=== PATIENT | male | born 1975 | race Caucasian/White ===

== ENCOUNTER 2024-10-30 09:09 | Inpatient (IN) | payer OTHER ==
[~2024-10-30] VITALS: Ht 177.8 cm; Wt 83.9 kg
[2024-10-30] VITALS (49 sets, daily range): BP systolic 129–169; BP diastolic 95–128; PULSE 75–111; RESP 7–34; TEMP 36.2–36.4; O2SAT 91–99
[2024-10-30] MEDS: HEPARIN 5000 UNITS/ML VIAL IV ONE (09:18)
[2024-10-30] MEDS: METOPROLOL TARTRATE 5MG/5ML VIAL IV ONE (09:18)
[2024-10-30] MEDS ORDERED: HEPARIN 1000 UNITS/ML 10ML ONE (09:21)
[2024-10-30] MEDS ORDERED: IODIXANOL 320 MG/ML 150ML BOTTLE IV ONE (09:21)
[2024-10-30] MEDS ORDERED: LIDOCAINE HCL 1% 20ML VIAL ONE (09:21)
[2024-10-30 09:23] LABS: BASOPHILS % 0.6 % (0.0-2.0); EOSINOPHILS % 3.4 % (0.0-5.0); HEMATOCRIT. 44.6 % (42.0-52.0); HEMOGLOBIN. 14.8 g/dL (14.0-18.0); LYMPHOCYTES % 41.6 % (20.0-50.0); MEAN CORPUSCULAR HEMOGLOBIN 30.5 pg (28.0-32.0); MEAN CORPUSCULAR HGB CONC 33.3 g/dL (31.0-37.0); MEAN CORPUSCULAR VOLUME 91.6 fL (80.0-94.0); MEAN PLATELET VOLUME 8.7 fl (7.4-10.4); MONOCYTES % 6.9 % (2.0-8.0); NEUTROPHILS % 47.5 % (40.0-76.0); PLATELET 258 x1000/uL (130-400); RED BLOOD CELL COUNT 4.87 mill/uL (4.7-6.1); RED CELL DISTRIBUTION WIDTH 13.1 % (11.6-14.6); WHITE BLOOD COUNT 11.7 x1000/uL (4.5-11.0)
[2024-10-30] MEDS ORDERED: MIDAZOLAM HCL 2 MG/2 ML VIAL ONE (09:23)
[2024-10-30] MEDS ORDERED: FENTANYL CITRATE/PF 50MCG/ML 2ML VIAL ONE (09:23)
[2024-10-30 09:32] LABS: CARBON DIOXIDE 26 mEq/L (21-32); CHLORIDE 105 mEq/L (98-107); POTASSIUM 3.5 mEq/L (3.5-5.1); SODIUM 142 mEq/L (136-145)
[2024-10-30 09:33] LABS: CALCIUM 9.4 mg/dL (8.7-10.4)
[2024-10-30 09:37] LABS: CREATININE 1.3 mg/dL (0.6-1.3); GLUCOSE 165 mg/dL (70-105)
[2024-10-30 09:38] LABS: UREA NITROGEN BLOOD 11 mg/dL (9-23)
[2024-10-30 09:39] LABS: ALANINE AMINOTRANSFERASE 111 IU/L (10-49); ALBUMIN 4.8 g/dL (3.2-4.8); ASPARTATE AMINOTRANSFERASE 42 IU/L (<34)
[2024-10-30 09:40] LABS: BILIRUBIN DIRECT 0.1 mg/dL (<=3.0); BILIRUBIN TOTAL 0.6 mg/dL (0.1-1.0); PROTEIN TOTAL 7.8 g/dL (6.0-8.3)
[2024-10-30 09:43] LABS: PROTHROMBIN TIME 10.6 sec (9.6-11.0)
[2024-10-30 09:54] LABS: TROPONIN I HIGH SENSITIVITY 83 ng/L (3.0-53)
[2024-10-30] MEDS ORDERED: IODIXANOL 320MG/ML 100 ML BOTTLE IV ONE (10:03)
[2024-10-30] MEDS ORDERED: CLOPIDOGREL 75MG TABLET ONE (10:13)
[2024-10-30] MEDS ORDERED: ATROPINE SULFATE 1MG/10ML SYR IV PRN (10:30)
[2024-10-30] MEDS ORDERED: ACETAMINOPHEN 325MG TABLET PO PRN (11:30)
[2024-10-30] MEDS ORDERED: MORPHINE SULFATE 2 MG/ML INJ (NOT FOR IM USE) IV PRN (11:30)
[2024-10-30] MEDS ORDERED: MAGNESIUM/ALUMINUM HYDROXIDE/SIMETHICONE 30ML UDC PO PRN (11:30)
[2024-10-30] MEDS ORDERED: GUAIFENESIN 200MG/10ML SUGAR FREE UDC PO PRN (11:30)
[2024-10-30] MEDS ORDERED: DOCUSATE SODIUM 100MG CAPSULE PO PRN (11:30)
[2024-10-30] MEDS ORDERED: IPRATROPIUM/ALBUTEROL 0.5-3(2.5)MG/3ML NEB HHN PRN (11:30)
[2024-10-30] MEDS: ONDANSETRON HCL 4MG/2ML INJ IV PRN (11:39)
[2024-10-30] MEDS: CLONIDINE 0.1MG TABLET PO PRN (11:40)
[2024-10-30] MEDS ORDERED: NALOXONE HCL 0.4MG/ML VIAL IV PRN (11:45)
[2024-10-30 13:22] LABS: TROPONIN I HIGH SENSITIVITY 161276 ng/L (3.0-53)
[2024-10-30] MEDS: ACETAMINOPHEN 325MG TABLET PO PRN (14:43)
[2024-10-30] MEDS: HYDRALAZINE 20MG/ML VIAL IV NR (16:39)
[2024-10-30 17:28] LABS: TROPONIN I HIGH SENSITIVITY 138003 ng/L (3.0-53)
[2024-10-30] MEDS: METOPROLOL TARTRATE 50MG TABLET PO SCH (20:40)
[2024-10-30] MEDS: ATORVASTATIN CALCIUM 40MG TABLET PO SCH (20:40)
[2024-10-30] MEDS ORDERED: METOPROLOL TARTRATE 25MG TABLET PO SCH (21:00)
[2024-10-30 22:11] LABS: TROPONIN I HIGH SENSITIVITY 122058 ng/L (3.0-53)
[2024-10-31] VITALS (68 sets, daily range): BP systolic 129–162; BP diastolic 88–125; PULSE 77–123; RESP 8–35; TEMP 36.4–37; O2SAT 89–98
[2024-10-31] MEDS ORDERED: OMEG-221 PO (00:23)
[2024-10-31] MEDS ORDERED: SERT-112 PO (00:23)
[2024-10-31] MEDS ORDERED: DOXY100C5 PO (00:23)
[2024-10-31] MEDS ORDERED: ALPR-339 (00:23)
[2024-10-31] MEDS ORDERED: ERGO1250 PO (00:23)
[2024-10-31 01:04] LABS: CREATINE KINASE MB FRACTION 179.3 ng/mL (0.5-3.6)
[2024-10-31] MEDS: ACETAMINOPHEN 325MG TABLET PO PRN (01:06)
[2024-10-31 01:13] LABS: CREATINE KINASE 2867 IU/L (46-171)
[2024-10-31 01:35] LABS: TROPONIN I HIGH SENSITIVITY 98066 ng/L (3.0-53)
[2024-10-31 07:43] LABS: BASOPHILS % 0.1 % (0.0-2.0); EOSINOPHILS % 0.2 % (0.0-5.0); HEMATOCRIT. 44.8 % (42.0-52.0); HEMOGLOBIN. 15.4 g/dL (14.0-18.0); LYMPHOCYTES % 10.2 % (20.0-50.0); MEAN CORPUSCULAR HEMOGLOBIN 30.9 pg (28.0-32.0); MEAN CORPUSCULAR HGB CONC 34.2 g/dL (31.0-37.0); MEAN CORPUSCULAR VOLUME 90.1 fL (80.0-94.0); MEAN PLATELET VOLUME 8.8 fl (7.4-10.4); MONOCYTES % 8.9 % (2.0-8.0); NEUTROPHILS % 80.6 % (40.0-76.0); PLATELET 259 x1000/uL (130-400); RED BLOOD CELL COUNT 4.98 mill/uL (4.7-6.1); RED CELL DISTRIBUTION WIDTH 13.6 % (11.6-14.6); WHITE BLOOD COUNT 18.5 x1000/uL (4.5-11.0)
[2024-10-31 07:50] LABS: CALCIUM 9.5 mg/dL (8.7-10.4); CHLORIDE 102 mEq/L (98-107); POTASSIUM 3.4 mEq/L (3.5-5.1); SODIUM 137 mEq/L (136-145)
[2024-10-31 07:51] LABS: CARBON DIOXIDE 22 mEq/L (21-32)
[2024-10-31 07:56] LABS: CREATININE 0.9 mg/dL (0.6-1.3); GLUCOSE 124 mg/dL (70-105); T4 FREE 1.07 ng/dL (0.89-1.76); THYROID STIMULATING HORMONE 1.32 uIU/mL (0.55-4.78); TRIGLYCERIDE 167 mg/dL (0-150); UREA NITROGEN BLOOD 11 mg/dL (9-23)
[2024-10-31 07:57] LABS: LDL CHOLESTEROL 235 mg/dL (5-100)
[2024-10-31 07:58] LABS: CHOLESTEROL 280 mg/dL (<200); HDL CHOLESTEROL 45 mg/dL (>55)
[2024-10-31 08:20] LABS: TROPONIN I HIGH SENSITIVITY 79519 ng/L (3.0-53)
[2024-10-31] MEDS ORDERED: LOSARTAN 25 MG TABLET PO SCH (09:00)
[2024-10-31] MEDS: PANTOPRAZOLE SODIUM 40 MG/VIAL IV SCH (09:17)
[2024-10-31] MEDS: AMLODIPINE 5MG TABLET PO SCH (09:18)
[2024-10-31] MEDS: CLOPIDOGREL 75MG TABLET PO SCH (09:19)
[2024-10-31] MEDS: LOSARTAN 50 MG TABLET PO SCH (09:19)
[2024-10-31] MEDS: ASPIRIN 81MG TABLET PO SCH (09:20)
[2024-10-31] MEDS: POTASSIUM CHLORIDE 20MEQ TABLET SR PO NR (10:39)
[2024-10-31] MEDS: MELATONIN 3MG TABLET PO SCH (21:43)
[2024-10-31] MEDS: LISINOPRIL 20MG TABLET PO SCH (21:43)
[2024-10-31] MEDS: SUCRALFATE 1G TABLET PO SCH (21:44)
[2024-10-31 23:53] LABS: CLARITY URINE CLEAR (CLEAR); COLOR URINE YELLOW (YELLOW); GLUCOSE URINE NEGATIVE (NEGATIVE); KETONES URINE TRACE (NEGATIVE); LEUKOCYTE ESTERASE URINE NEGATIVE (NEGATIVE); NITRITE URINE NEGATIVE (NEGATIVE); OCCULT BLOOD URINE NEGATIVE (NEGATIVE); PROTEIN URINE TRACE (NEGATIVE); UROBILINOGEN URINE 0.2 E.U./dL (0.2-1.0)
[2024-10-31 23:58] LABS: *AMPHETAMINES SCREEN URINE NEGATIVE (NEGATIVE); *BARBITURATES SCREEN URINE NEGATIVE (NEGATIVE); *BENZODIAZEPINES SCREEN URINE NEGATIVE (NEGATIVE); *COCAINE SCREEN URINE NEGATIVE (NEGATIVE); CANNABINOID URINE SCREEN PRESUMPTIVE POSITIVE (NEGATIVE); ECSTASY MDMA SCREEN URINE NEGATIVE (NEGATIVE); METHADONE URINE SCREEN NEGATIVE (NEGATIVE); OPIATES URINE SCREEN NEGATIVE (NEGATIVE); PHENCYCLIDINE URINE SCREEN NEGATIVE (NEGATIVE)
[2024-11-01 00:32] LABS: BACTERIA URINE NONE SEEN; RBC URINE NONE SEEN /hpf (0-2); SQUAMOUS EPITHELIAL CELL URINE NONE SEEN /lpf (RARE/1+); WBC URINE 0-2 /hpf (0-2)
[2024-11-01] MEDS: HYDROCODONE/ACETAMINOPHEN 5/325MG TABLET PO PRN (01:57)
[2024-11-01 04:00] VITALS: BP 123/89; PULSE 89; RESP 18; TEMP 36.4; O2SAT 94
[2024-11-01 07:11] LABS: CHLORIDE 102 mEq/L (98-107); POTASSIUM 3.7 mEq/L (3.5-5.1); SODIUM 138 mEq/L (136-145)
[2024-11-01 07:12] LABS: CALCIUM 9.4 mg/dL (8.7-10.4); CARBON DIOXIDE 25 mEq/L (21-32)
[2024-11-01 07:17] LABS: GLUCOSE 121 mg/dL (70-105); UREA NITROGEN BLOOD 15 mg/dL (9-23)
[2024-11-01 07:22] LABS: BASOPHILS % 0.3 % (0.0-2.0); EOSINOPHILS % 0.9 % (0.0-5.0); HEMATOCRIT. 45.4 % (42.0-52.0); HEMOGLOBIN. 15.4 g/dL (14.0-18.0); LYMPHOCYTES % 23.2 % (20.0-50.0); MEAN CORPUSCULAR HEMOGLOBIN 30.7 pg (28.0-32.0); MEAN CORPUSCULAR HGB CONC 33.8 g/dL (31.0-37.0); MEAN CORPUSCULAR VOLUME 90.9 fL (80.0-94.0); MEAN PLATELET VOLUME 8.8 fl (7.4-10.4); MONOCYTES % 11.8 % (2.0-8.0); NEUTROPHILS % 63.8 % (40.0-76.0); PLATELET 234 x1000/uL (130-400); RED CELL DISTRIBUTION WIDTH 13.3 % (11.6-14.6); WHITE BLOOD COUNT 13.8 x1000/uL (4.5-11.0)
[2024-11-01 08:00] VITALS: BP 122/88; PULSE 77; RESP 11; TEMP 36.6; O2SAT 97
[2024-11-01] MEDS: LACTULOSE 20G/30ML UDC PO NR (08:30)
[2024-11-01 12:00] VITALS: BP 112/72; PULSE 69; RESP 12; TEMP 36.8; O2SAT 97
[2024-11-01] MEDS ORDERED: CLOP-31 PO (13:13)
[2024-11-01] MEDS ORDERED: LISI20TA31 PO (13:13)
[2024-11-01] MEDS ORDERED: LIP40 PO (13:13)
[2024-11-01] MEDS ORDERED: ASPI-1160 PO (13:13)
[2024-11-01] MEDS ORDERED: METO-539 PO (13:13)
[2024-11-01 13:27] VITALS: BP 112/72; PULSE 69; TEMP 98.3; O2SAT 92
== END 2024-11-01 14:15 | disposition home or self-care (01) | DRG 322 ==
LOC: ER 09:09 → CVICU 09:47 → 3WST 10-31 23:06
PROVIDERS: ADMIT Internal Medicine; ATTEND Internal Medicine
PROC: 027135Z Dilation of Coronary Artery, Two Arteries with Two Drug-eluting Intraluminal Devices, Percutaneous Approach (ICD-10-PCS; principal; 2024-10-30)
PROC: 4A023N7 Measurement of Cardiac Sampling and Pressure, Left Heart, Percutaneous Approach (ICD-10-PCS; 2024-10-30)
PROC: B2151ZZ Fluoroscopy of Left Heart using Low Osmolar Contrast (ICD-10-PCS; 2024-10-31)
PROC: B2111ZZ Fluoroscopy of Multiple Coronary Arteries using Low Osmolar Contrast (ICD-10-PCS; 2024-10-31)
DX: I21.09 ST elevation (STEMI) myocardial infarction involving other coronary artery of anterior wall (principal); M62.82 Rhabdomyolysis; I10 Essential (primary) hypertension; R73.9 Hyperglycemia, unspecified; F12.10 Cannabis abuse, uncomplicated; E78.5 Hyperlipidemia, unspecified; E87.6 Hypokalemia; F10.90 Alcohol use, unspecified, uncomplicated; Y90.9 Presence of alcohol in blood, level not specified; Z79.02 Long term (current) use of antithrombotics/antiplatelets; Z79.82 Long term (current) use of aspirin; Z79.899 Other long term (current) drug therapy
CPT/HCPCS: 36415; 71045; 74018; 80048; 80061; 80076; 80305; 81003; 82550; 82553; 83036; 83735; 84439; 84443; 84484; 85025; 85347; 86850; 86900; 92929; 92941; 93005; 93458; 97162; 97166; 99291; C1725; C1769; C1874; C1887; C1893; J0360; J1644; J2250; J2405; J2470; J3010; J3490; Q9967